=== PATIENT | male | born 1955 | race Hispanic/Latino ===

== ENCOUNTER 2017-04-05 15:05 | Emergency (ER) | payer OTHER ==
[~2017-04-05] VITALS: Ht 162.6 cm; Wt 71.0 kg
[2017-04-05] MEDS ORDERED: ZITHROMAX250 MG PO (16:53)
[2017-04-05] MEDS ORDERED: PREDNISONE50 MG PO (16:53)
[2017-04-05] MEDS ORDERED: TYLENOL # 31 TA1 PO (16:53)
[2017-04-05] MEDS ORDERED: VENTOLIN HFA IN (17:03)
[2017-04-05 17:50] VITALS: BP 129/81
== END 2017-04-05 17:51 | disposition home or self-care (01) | DRG 203 ==
LOC: ED 15:05
DX: J40 Bronchitis, not specified as acute or chronic (principal); E11.9 Type 2 diabetes mellitus without complications